=== PATIENT | male | born 1985 | race Caucasian/White ===

== ENCOUNTER 2018-06-17 09:04 | Emergency (ER) | payer MEDICAID ==
[~2018-06-17] VITALS: Ht 175.3 cm; Wt 111.6 kg
[2018-06-17 09:08] VITALS: BP 145/99; Ht 175.3 cm; Wt 111.6 kg
== END 2018-06-17 09:55 | disposition home or self-care (01) ==
LOC: ED 09:04
DX: M54.5 Low back pain (principal)
CPT/HCPCS: J1885

== ENCOUNTER 2018-06-24 11:02 | Emergency (ER) | payer MEDICAID ==
[~2018-06-24] VITALS: Ht 175.3 cm; Wt 109.0 kg
[2018-06-24 11:11] VITALS: Ht 175.3 cm; Wt 109.0 kg
[2018-06-24 12:41] VITALS: BP 136/87
== END 2018-06-24 12:41 | disposition home or self-care (01) ==
LOC: ED 11:02
DX: M54.5 Low back pain (principal)
CPT/HCPCS: J1885

== ENCOUNTER 2019-09-15 22:13 | Emergency (ER) | payer MEDICAID ==
[~2019-09-15] VITALS: Ht 175.3 cm; Wt 115.3 kg
[2019-09-15 22:21] VITALS: Ht 175.3 cm; Wt 115.3 kg
[2019-09-16 01:52] LABS: BASOPHIL % 0.4 % (0-2); PLATELET COUNT 214 x10^3mcL (130-400); RED CELL DISTRIBUTION WIDTH 12.7 % (11.5-14.5)
[2019-09-16 02:05] LABS: CARBON DIOXIDE 29.2 mmol/L (21-32); CHLORIDE SERUM 104 mmol/L (98-107); GLUCOSE SERUM 85 mg/dL (74-106); POTASSIUM SERUM 3.6 mmol/L (3.5-5.1); SODIUM SERUM 140 mmol/L (136-145)
[2019-09-16 02:06] LABS: CALCIUM 9.2 mg/dL (8.5-10.1); CREATININE SERUM 1.1 mg/dL (0.7-1.3); GFR1 > 60 mL/min; MAGNESIUM 2.2 mg/dL (1.8-2.4)
[2019-09-16 03:23] VITALS: BP 129/76
== END 2019-09-16 03:23 | disposition home or self-care (01) ==
LOC: ED 22:13
PROVIDERS: Emergency Medicine
DX: R51 Headache (principal); R68.84 Jaw pain; R20.2 Paresthesia of skin
CPT/HCPCS: 36415; J8597

== ENCOUNTER 2020-09-22 20:29 | Emergency (ER) | payer MEDICAID, SELFPAY ==
[~2020-09-22] VITALS: Ht 175.3 cm; Wt 111.1 kg
[2020-09-22 20:33] VITALS: Ht 175.3 cm; Wt 111.1 kg
[2020-09-22 21:13] VITALS: BP 145/83
== END 2020-09-22 21:13 | disposition home or self-care (01) ==
LOC: ED 20:29
DX: R06.02 Shortness of breath (principal); Z20.822 Contact with and (suspected) exposure to COVID-19
CPT/HCPCS: U0003

== ENCOUNTER 2020-10-01 21:34 | Emergency (ER) | payer MEDICAID, SELFPAY ==
[~2020-10-01] VITALS: Ht 175.3 cm; Wt 111.1 kg
[2020-10-01 21:35] VITALS: BP 129/77; Ht 175.3 cm; Wt 111.1 kg
== END 2020-10-01 23:26 | disposition home or self-care (01) ==
LOC: ED 21:34
DX: R07.89 Other chest pain (principal); R51.9 Headache, unspecified; R20.2 Paresthesia of skin; Z20.828 Contact with and (suspected) exposure to other viral communicable diseases
CPT/HCPCS: 36600; U0003